=== PATIENT | male | born 1985 | race Caucasian/White ===

== ENCOUNTER 2021-11-02 12:30 | Emergency (ER) | payer SELFPAY ==
[2021-11-02] MEDS ORDERED: Acetaminophen 325 MG Tab PO ONE (13:20)
[2021-11-02] MEDS ORDERED: Ondansetron 4 MG Tab.DIS PO ONE (13:20)
--- NOTE | 2021-11-02 13:29 | CR ---
Chest: Frontal view of the chest was obtained. Comparison: No prior chest imaging is available. Increased density is seen within both lungs. Findings have the appearance of diffuse COVID pneumonia. Heart size and mediastinum are normal. Bony structures show nothing acute. Impression: 1. Findings felt compatible with diffuse COVID pneumonia. Diagnostic code #3
--- NOTE | 2021-11-02 13:47 | EDM.PDOC ---
ED HPI GENERAL MEDICAL PROBLEM - General Chief Complaint: Respiratory Problem Stated Complaint: COVID + SOB Time Seen by Provider: 11/02/21 12:43 Source of Information: Reports: Patient, RN Notes Reviewed History Limitations: Reports: No Limitations - History of Present Illness INITIAL COMMENTS - FREE TEXT/NARRATIVE: Patient is a 36-year-old male presenting to the emergency department for evaluation of Covid symptoms. He reports he developed Covid symptoms on of last week. He tested Covid positive on Friday. Complains of cough, shortness of breath, nausea, headache, and loss of taste and smell. Reports his taste and smell is coming back. He has not been eating for the last 2 days due to nausea. Reports that he coughed so hard that he vomits. Complains of chest discomfort with breathing and coughing. He has not taken any Tylenol or ibuprofen for the last 2 days as he has not been able to eat. Patient has a pulse oximeter at home and states that his oxygen saturations have been as low as 88%, however, this is brief. Oxygen saturations maintained in the 90s. Denies any diarrhea. This is his first time seeking treatment for Covid illness. Denies any chronic medical conditions. Headache Pain Score (Numeric/FACES): 6 - Related Data Allergies Allergy/AdvReac Type Severity Reaction Status Date / Time No Known Allergies Allergy Verified 11/02/21 12:42 Home Meds: Home Meds Ondansetron [Zofran ODT] 4 mg PO Q6H PRN #10 tab.dis 11/02/21 [Rx] dexAMETHasone [Decadron] 6 mg PO DAILY #5 tablet 11/02/21 [Rx] Past Medical History Respiratory History: Reports: Other (See Below) Other Respiratory History: +) COVID Musculoskeletal History: Reports: Back Pain, Chronic Neurological History: Reports: Head Trauma Psychiatric History: Reports: ADHD, Anxiety, Depression, PTSD Dermatologic History: Reports: Other (See Below) Other Dermatologic History: rosacea - Infectious Disease History Infectious Disease History: Reports: Chicken Pox, Novel Coronavirus - Past Surgical History GI Surgical History: Reports: Colonoscopy, Other (See Below) Other GI Surgeries/Procedures: intusseption in orderlies teacher. endoscopy. Musculoskeletal Surgical History: Reports: Arthroscopic Knee Social & Family History - Tobacco Use Tobacco Use Status *Q: Never Tobacco User Second Hand Smoke Exposure: No - Caffeine Use Caffeine Use: Reports: Coffee, Energy Drinks, Soda - Recreational Drug Use Recreational Drug Use: No ED ROS GENERAL - Review of Systems Review Of Systems: See Below Constitutional: Reports: Fever, Chills, Fatigue, Decreased Appetite HEENT: Reports: No Symptoms Respiratory: Reports: Shortness of Breath, Pleuritic Chest Pain, Cough Cardiovascular: Reports: Dyspnea on Exertion. Denies: Lightheadedness, Palpitations, Syncope Endocrine: Reports: No Symptoms GI/Abdominal: Reports: Decreased Appetite, Nausea, Vomiting. Denies: Abdominal Pain, Diarrhea : Reports: No Symptoms Musculoskeletal: Reports: No Symptoms Skin: Reports: No Symptoms Neurological: Reports: Headache. Denies: Confusion, Dizziness Psychiatric: Reports: No Symptoms Hematologic/Lymphatic: Reports: No Symptoms Immunologic: Reports: No Symptoms ED EXAM, GENERAL - Physical Exam Exam: See Below Exam Limited By: No Limitations General Appearance: Alert, WD/WN, No Apparent Distress Respiratory/Chest: No Respiratory Distress, Lungs Clear, Normal Breath Sounds, No Accessory Muscle Use, Chest Non-Tender Cardiovascular: Normal Peripheral Pulses, Regular Rate, Rhythm, No Edema, No Gallop, No JVD, No Murmur, No Rub GI/Abdominal: Normal Bowel Sounds, Soft, Non-Tender, No Organomegaly, No Distention, No Abnormal Bruit, No Mass Neurological: Alert, Oriented, Normal Cognition, Normal Gait, No Motor/Sensory Deficits Psychiatric: Normal Affect, Normal Mood Skin Exam: Warm, Dry, Intact, Normal Color, No Rash #1 Interpretation EKG Date: 11/02/21 Time: 13:07 Rhythm: NSR Rate (Beats/Min): 101 [place]: Normal P-Wave: Present QRS: Normal ST-T: Normal QT: Normal EKG Interpretation Comments: Inverted T waves in aVL. EKG interpreted by Dr. Moo MD. #2 Interpretation EKG Date: 11/02/21 Time: 16:25 Rhythm: NSR Rate (Beats/Min): 87 [place]: Normal P-Wave: Present QRS: Normal ST-T: Normal QT: Prolonged EKG Interpretation Comments: Normal T waves in aVL. Interval change from previous EKG. EKG interpreted by Dr. Moo MD. Course - Vital Signs Last Recorded V/S: Last Vital Signs Temp 98.6 F 11/02/21 18:20 Pulse 85 11/02/21 18:20 Resp 14 11/02/21 18:20 BP 140/87 11/02/21 18:20 Pulse Ox 96 11/02/21 18:20 - Orders/Labs/Meds Labs: Laboratory Tests 11/02/21 11/02/21 11/02/21 Range/Units 13:10 13:10 13:10 WBC 2.38 L* (4.23-9.07) K/mm3 RBC 6.15 H (4.63-6.08) M/mm3 Hgb 17.5 (13.7-17.5) gm/dl Hct 51.4 H (40.1-51.0) % MCV 83.6 D (79.0-92.2) fl MCH 28.5 (25.7-32.2) pg MCHC 34.0 (32.2-35.5) g/dl RDW Std Deviation 42.2 (35.1-43.9) fL Plt Count 148 L D (163-337) K/mm3 MPV 10.5 (9.4-12.3) fl Neut % (Auto) 58.8 (34.0-67.9) % Lymph % (Auto) 32.8 (21.8-53.1) % [place] % (Auto) 7.6 (5.3-12.2) % Eos % (Auto) 0 L (0.8-7.0) Baso % (Auto) 0.4 (0.1-1.2) % Neut # (Auto) 1.40 L (1.78-5.38) K/mm3 Lymph # (Auto) 0.78 L (1.32-3.57) K/mm3 [place] # (Auto) 0.18 L (0.30-0.82) K/mm3 Eos # (Auto) 0.00 L (0.04-0.54) K/mm3 Baso # (Auto) 0.01 (0.01-0.08) K/mm3 D-Dimer, Quantitative 0.54 H (0.19-0.50) mg/L Sodium 135 L (136-145) mEq/L Potassium 3.7 (3.5-5.1) mEq/L Chloride 100 (98-107) mEq/L Carbon Dioxide 24 (21-32) mEq/L Anion Gap 14.7 (5-15) BUN 19 H (7-18) mg/dL Creatinine 1.2 (0.7-1.3) mg/dL Est Cr Clr Drug Dosing 103.67 mL/min Estimated GFR (MDRD) > 60 (>60) mL/min BUN/Creatinine Ratio 15.8 (14-18) Glucose 80 (70-99) mg/dL Calcium 7.8 L (8.5-10.1) mg/dL Total Bilirubin 0.6 (0.2-1.0) mg/dL AST 216 H (15-37) U/L ALT 261 H (16-63) U/L Alkaline Phosphatase 79 (46-116) U/L Troponin I 0.084 H* (0.00-0.056) ng/mL C-Reactive Protein 6.2 H* (<1.0) mg/dL Total Protein 7.0 (6.4-8.2) g/dl Albumin 3.1 L (3.4-5.0) g/dl Globulin 3.9 gm/dL Albumin/Globulin Ratio 0.8 L (1-2) 11/02/21 Range/Units 15:30 WBC (4.23-9.07) K/mm3 RBC (4.63-6.08) M/mm3 Hgb (13.7-17.5) gm/dl Hct (40.1-51.0) % MCV (79.0-92.2) fl MCH (25.7-32.2) pg MCHC (32.2-35.5) g/dl RDW Std Deviation (35.1-43.9) fL Plt Count (163-337) K/mm3 MPV (9.4-12.3) fl Neut % (Auto) (34.0-67.9) % Lymph % (Auto) (21.8-53.1) % [place] % (Auto) (5.3-12.2) % Eos % (Auto) (0.8-7.0) Baso % (Auto) (0.1-1.2) % Neut # (Auto) (1.78-5.38) K/mm3 Lymph # (Auto) (1.32-3.57) K/mm3 [place] # (Auto) (0.30-0.82) K/mm3 Eos # (Auto) (0.04-0.54) K/mm3 Baso # (Auto) (0.01-0.08) K/mm3 D-Dimer, Quantitative (0.19-0.50) mg/L Sodium (136-145) mEq/L Potassium (3.5-5.1) mEq/L Chloride (98-107) mEq/L Carbon Dioxide (21-32) mEq/L Anion Gap (5-15) BUN (7-18) mg/dL Creatinine (0.7-1.3) mg/dL Est Cr Clr Drug Dosing mL/min Estimated GFR (MDRD) (>60) mL/min BUN/Creatinine Ratio (14-18) Glucose (70-99) mg/dL Calcium (8.5-10.1) mg/dL Total Bilirubin (0.2-1.0) mg/dL AST (15-37) U/L ALT (16-63) U/L Alkaline Phosphatase (46-116) U/L Troponin I 0.103 H* (0.00-0.056) ng/mL C-Reactive Protein (<1.0) mg/dL Total Protein (6.4-8.2) g/dl Albumin (3.4-5.0) g/dl Globulin gm/dL Albumin/Globulin Ratio (1-2) Meds: Medications Discontinued Medications Generic Name Dose Route Start Last Admin Trade Name Freq PRN Reason Stop Dose Admin Acetaminophen 975 mg 11/02/21 13:20 11/02/21 13:43 Acetaminophen 325 Mg Tab PO 11/02/21 13:21 975 mg NOW ONE Administration Iopamidol 100 ml 11/02/21 17:39 11/02/21 18:22 Iopamidol 755 Mg/Ml 100 Ml Bottle IVPUSH 11/02/21 17:40 100 ml ONETIME ONE Administration Ondansetron HCl 4 mg 11/02/21 13:20 11/02/21 13:34 Ondansetron 4 Mg Tab.Dis PO 11/02/21 13:21 4 mg ONETIME ONE Administration Sodium Chloride 10 ml 11/02/21 17:38 11/02/21 18:22 Sodium Chloride 0.9% 10 Ml Syringe FLUSH 11/02/21 17:39 10 ml ONETIME ONE Administration - Re-Assessments/Exams Free Text/Narrative Re-Assessment/Exam: Patient is a 36-year-old male presenting to the emergency department for evaluation of Covid illness. He is proximate 8 days into his illness. Complains of cough, shortness of breath, headache, and nausea. On exam, lung sounds are clear to auscultation. Oxygen saturation 98% on room air. Vital signs are normal. I have ordered blood work, chest x-ray, EKG. We will give him Zofran ODT and Tylenol for headache. 11/02/21 14:43 Hematology significant for WBC low at 2.38, D-dimer 0.54, AST 216, ALT 261, troponin 0 0.084. Chest x-ray shows bilateral Covid pneumonia. EKG shows a inverted T wave in aVL. Otherwise unremarkable. Patient is feeling much better after the Zofran and Tylenol. He is hungry and wants to eat something. Slight elevation in troponin is likely due to Covid, however we will plan to repeat troponin at 1530 and consult with cardiology. Patient continues to deny chest pain other than when coughing or deep breathing. 11/02/21 16:49 Repeat troponin slightly more elevated 0.103. Repeat EKG shows T wave that was originally flipped in aVL is now normal. Case was discussed with automobile club information clerk at [facility] in [place], Dr. Hua. He recommended that we complete CT angiogram to ensure there is no pericardial effusion or PE. If this is normal, patient can be discharged home with routine symptomatic treatment. Reports el evation in troponin is likely due to demand ischemia versus mild pericarditis. Plan discussed with patient he is in agreement. I have ordered CT angiogram of the chest. 11/02/21 18:09 CT angiogram of the chest impression as follows: 1. No findings of pulmonary embolism. 2. Minimal fluid within the anterior pericardium which is most likely incidental. 3. Patchy areas of increased density are seen throughout both sides of the lungs compatible with diffuse Covid pneumonia. Results discussed with automobile club information clerk, . He recommends routine, symptomatic treatment. No follow-up is required based on these findings. Patient was started on Zofran for nausea and dexamethasone. Discussed return precautions. Discharge instructions as document. Departure - Departure Time of Disposition: 18:10 Disposition: Home, Self-Care 01 Condition: Good Clinical Impression: Pneumonia due to 2019-nCoV, Elevated troponin - Discharge Information *PRESCRIPTION DRUG MONITORING PROGRAM REVIEWED*: No *COPY OF PRESCRIPTION DRUG MONITORING REPORT IN PATIENT RAYRAY: No Prescriptions: dexAMETHasone [Decadron] 6 mg PO DAILY #5 tablet Ondansetron [Zofran ODT] 4 mg PO Q6H PRN #10 tab.dis PRN Reason: Nausea/Vomiting Instructions: COVID-19 Referrals: Barb Gutiérrez MD [Primary Care Provider] - Forms: ED Department Discharge Additional Instructions: Take Zofran as prescribed for nausea. You received a dose of this in the ER. Take dexamethasone as prescribed. Continue to monitor oxygen saturations at home. If you are maintaining a saturation of 88% or below or you develop any other new or worsening symptoms of concern, please return to the emergency department for reevaluation. Sepsis Event Note (ED) - Evaluation Sepsis Screening Result: No Definite Risk - Focused Exam Vital Signs: Vital Signs Temp Pulse Resp BP Pulse Ox 11/02/21 18:20 98.6 F 85 14 140/87 96 11/02/21 12:35 96.8 F L 100 16 140/85 98
[2021-11-02] MEDS ORDERED: Sodium Chloride 0.9% 10 ML Syringe FLUSH ONE (17:38)
[2021-11-02] MEDS ORDERED: Iopamidol 755 Mg/ML 100 ML Bottle IVPUSH ONE (17:39)
--- NOTE | 2021-11-02 17:44 | CT ---
CT chest Technique: Multiple axial sections through the chest were obtained. Intravenous contrast was utilized. Study has been performed as a pulmonary angiogram protocol. Comparison: Prior chest x-ray performed on the same date (12:57 PM). Findings: Pulmonary arteries are well opacified. No filling defects are seen to indicate pulmonary embolism. Thoracic aorta shows no aneurysm. Mediastinum shows no adenopathy. No axillary adenopathy is seen. Minimal fluid is seen within the anterior pericardium. Heart size is normal. Visualized upper abdominal structures show nothing acute. Lung window settings were reviewed. Diffuse patchy areas of increased density are seen throughout both lungs. Bone window settings were reviewed. No acute osseous abnormality is appreciated. Impression: 1. No findings of pulmonary embolism. 2. Minimal fluid within the anterior pericardium which is most likely incidental. 3. Patchy areas of increased density are seen throughout both sides of the lungs compatible with diffuse COVID pneumonia. Diagnostic code #3
== END 2021-11-02 18:25 | disposition home or self-care (01) ==
LOC: JD.ED 12:30 → SUPCPDRO 12:30 → JD.ED 18:25
DX: U07.1 COVID-19 (principal); J12.82 Pneumonia due to coronavirus disease 2019; R79.89 Other specified abnormal findings of blood chemistry
CPT/HCPCS: 36415; 71045; 71275; 80053; 84484; 85025; 85379; 86140; 93005; 99285; A9270; Q9967; 93010

== ENCOUNTER 2022-01-10 18:20 | Emergency (ER) | payer BC | END 2022-01-10 20:00 | disposition home or self-care (01) | LOC: JD.ED 18:20 | DX: R05.9 Cough, unspecified (principal) | CPT/HCPCS: 71046; 71046-26; 99283; 99283-25 ==

== ENCOUNTER 2023-06-01 12:47 | Emergency (ER) | payer OTHER, BC ==
[2023-06-01] MEDS ORDERED: Lidocaine 1% 10 ML MDV INJECT ONE (13:53)
[2023-06-01] MEDS ORDERED: Diphtheria,Pertussis(Acell),Tetanus Vaccine 0.5 ML Syringe IM ONE (13:54)
== END 2023-06-01 15:45 | disposition home or self-care (01) ==
LOC: JD.ED 12:47
DX: S51.011A Laceration without foreign body of right elbow, initial encounter (principal); Z23 Encounter for immunization; W16.112A Fall into natural body of water striking water surface causing other injury, initial encounter
CPT/HCPCS: 12002; 73080-26-RT; 73080-RT; 90471; 90715; 99282; 99283-25; J3490

== ENCOUNTER 2025-08-11 12:08 | Emergency (ER) | payer OTHER ==
[2025-08-11] MEDS: Lidocaine 2% 11 ML Jelly Filled Syringe MUCMEM ONE (13:05)
[2025-08-11 13:29] LABS: APPEARANCE,URINE CLEAR (Clear); GLUCOSE,URINE TRACE (Negative); OCCULT BLOOD,URINE NEGATIVE (Negative)
[2025-08-11 13:40] LABS: EPITHELIAL CELLS,URINE 0-5 /hpf (0-5)
[2025-08-11] MEDS: Acetaminophen/HYDROcodone 325-5 MG Tab PO ONE (13:49)
== END 2025-08-11 14:16 | disposition home or self-care (01) ==
LOC: JD.ED 12:08
DX: R33.9 Retention of urine, unspecified (principal); Z88.8 Allergy status to other drugs, medicaments and biological substances; Z86.16 Personal history of COVID-19
CPT/HCPCS: 51702; 81001; 99284; A9270-GY